=== PATIENT | female | born 1970 | race Caucasian/White ===

== ENCOUNTER 2021-04-25 09:37 | Emergency (ER) | payer MEDICAID ==
[~2021-04-25] VITALS: Ht 160 cm; Wt 56.8 kg
[2021-04-25] MEDS ORDERED: ACETAMINOPHEN 500 MG TABLET PO ONE (10:30)
[2021-04-25] MEDS ORDERED: KETOROLAC TROMETHAMINE 30 MG/ML VIAL IM ONE (10:30)
[2021-04-25] MEDS ORDERED: IBUP-2088 PO (11:33)
[2021-04-25] MEDS ORDERED: HYDR-4723 PO (11:33)
[2021-04-25 11:34] VITALS: BP 120/70
== END 2021-04-25 12:58 | disposition home or self-care (01) ==
LOC: EMS 09:39
DX: S92.511A Displaced fracture of proximal phalanx of right lesser toe(s), initial encounter for closed fracture (principal); W01.0XXA Fall on same level from slipping, tripping and stumbling without subsequent striking against object, initial encounter; Y93.89 Activity, other specified; Y92.89 Other specified places as the place of occurrence of the external cause; Y99.8 Other external cause status
CPT/HCPCS: 73630; 96372; 99283; J1885

== ENCOUNTER 2021-09-15 16:43 | Emergency (ER) | payer MEDICAID ==
[~2021-09-15] VITALS: Ht 157.5 cm; Wt 54.5 kg
[~2021-09-15 16:43] MED LIST: HYDR-4723 PO; IBUP-2088 PO
[2021-09-15 16:44] VITALS: BP 144/98
[2021-09-15] MEDS ORDERED: ACETAMINOPHEN/CODEINE 300-30 MG TABLET PO ONE (17:30)
[2021-09-15] MEDS ORDERED: IBUPROFEN 600 MG TABLET PO ONE (17:30)
== END 2021-09-15 17:38 | disposition left against medical advice (07) ==
LOC: EMS 16:46
DX: M79.675 Pain in left toe(s) (principal); Z79.899 Other long term (current) drug therapy
CPT/HCPCS: 99281

== ENCOUNTER 2022-10-23 17:26 | Emergency (ER) | payer MEDICAID ==
[~2022-10-23] VITALS: Ht 157.5 cm; Wt 59.1 kg
[2022-10-23 17:29] VITALS: BP 109/85; PULSE 118; RESP 16; TEMP 98.2
== END 2022-10-23 19:11 | disposition left against medical advice (07) ==
LOC: EMS 17:26
DX: M79.631 Pain in right forearm (principal); Z53.21 Procedure and treatment not carried out due to patient leaving prior to being seen by health care provider
CPT/HCPCS: 99281; Z7502

== ENCOUNTER 2023-06-25 20:25 | Emergency (ER) | payer MEDICAID ==
[~2023-06-25] VITALS: Ht 157.5 cm; Wt 65.0 kg
[~2023-06-25 20:25] MED LIST changes: +HYDR-4062 PO; -HYDR-4723 PO
[2023-06-25 20:32] VITALS: TEMP 98.9
[2023-06-26] MEDS ORDERED: IBUP-2088 PO (00:47)
[2023-06-26] MEDS: HYDROCODONE/ACETAMINOPHEN 5-325 MG TABLET PO ONE (00:51)
[2023-06-26 01:16] VITALS: BP 130/80; PULSE 90; RESP 16
== END 2023-06-26 01:27 | disposition home or self-care (01) ==
LOC: EMS 20:28
DX: S63.502A Unspecified sprain of left wrist, initial encounter (principal); W19.XXXA Unspecified fall, initial encounter; Y93.89 Activity, other specified; Y92.89 Other specified places as the place of occurrence of the external cause; Y99.8 Other external cause status
CPT/HCPCS: 99283